=== PATIENT | female | born 1960 | race Two or more races ===

== ENCOUNTER 2018-10-31 09:53 | Day surgery (SDC) | payer BC ==
[~2018-10-31 09:53] MED LIST: Bupivacaine 0.25%/EPINEPHrine 1:200,000 10 ML SDV INJECT ONE; Lactated Ringers 1,000 ML IV SCH; ceFAZolin 2 GM in Premix Bag 1 BAG IV ONE; traMADol 50 MG Tab PO PRN
[2018-10-31] MEDS ORDERED: Ondansetron 4 MG/2 ML SDV ONE (10:18)
[2018-10-31] MEDS ORDERED: fentaNYL 100 MCG/2 ML SDV ONE (10:19)
[2018-10-31] MEDS ORDERED: Midazolam 1 MG/ML 2 ML SDV ONE (10:19)
[2018-10-31] MEDS ORDERED: Sodium Chloride 0.9% 20 ML ONE (10:19)
[2018-10-31] MEDS ORDERED: ceFAZolin 1 GM Vial ONE (10:19)
[2018-10-31] MEDS ORDERED: Propofol 200 MG/20 ML SDV ONE (10:19)
--- NOTE | 2018-10-31 10:37 | PCM.PREANE ---
Preanesthetic Assessment - Anesthesia/Transfusion/Family Hx Anesthesia History: Prior Anesthesia Without Reaction Family History of Anesthesia Reaction: No Transfusion History: No Prior Transfusion(s) - Review of Systems General: No Symptoms Pulmonary: No Symptoms Cardiovascular: No Symptoms Gastrointestinal: No Symptoms Neurological: No Symptoms Other: Reports: None - Physical Assessment NPO Status Date: 10/30/18 Height: 5 ft 7 in Weight: 77.564 kg ASA Class: 1 Mental Status: Alert & Oriented x3 Airway Class: Mallampati = 2 Dentition: Reports: Normal Dentition ROM/Head Extension: Full Lungs: Clear to Auscultation, Normal Respiratory Effort Cardiovascular: Regular Rate, Regular Rhythm - Allergies Allergies/Adverse Reactions: Allergies Allergy/AdvReac Type Severity Reaction Status Date / Time No Known Allergies Allergy Verified 10/30/18 08:59 - Blood Blood Available: No - Anesthesia Plan Pre-Op Medication Ordered: None - Acknowledgements Anesthesia Type Planned: MAC Pt an Appropriate Candidate for the Planned Anesthesia: Yes Alternatives and Risks of Anesthesia Discussed w Pt/Guardian: Yes Pt/Guardian Understands and Agrees with Anesthesia Plan: Yes PreAnesthesia Questionnaire HEENT History: Reports: Other (See Below) Other HEENT History: wears glasses, contacts [employer] HAND History: Reports: - Past Surgical History Head Surgeries/Procedures: Reports: None Musculoskeletal Surgical History: Reports: Knee Replacement Other Musculoskeletal Surgeries/Procedures:: right TKA - SUBSTANCE USE Smoking Status *Q: Never Smoker Recreational Drug Use History: No - HOME MEDS Home Medications: Home Meds . [No Known Home Meds] 10/30/18 [History] - CURRENT (IN HOUSE) MEDS Current Meds: Current Medications Lactated Ringer's (Ringers, Lactated) 1,000 mls @ 125 mls/hr IV ASDIRECTED ABDIEL Tramadol HCl (Ultram) 50 mg PO Q4H PRN PRN Reason: Pain Discontinued Medications Bupivacaine HCl/Epinephrine Bitart (Marcaine 0.25%/Epinephrine 1:200,000) 10 ml INJECT ONETIME ONE Stop: 10/31/18 08:01 Cefazolin Sodium (Ancef) Confirm Administered Dose 2 gm .ROUTE .STK-MED ONE Stop: 10/31/18 10:20 Fentanyl (Sublimaze) Confirm Administered Dose 100 mcg .ROUTE .STK-MED ONE Stop: 10/31/18 10:20 Cefazolin Sodium/Dextrose 2 gm (/ Premix) 50 mls @ 100 mls/hr IV ONETIME ONE Stop: 10/31/18 08:29 Sodium Chloride (Normal Saline) Confirm Administered Dose 20 mls @ as directed .ROUTE .STK-MED ONE Stop: 10/31/18 10:20 Midazolam HCl (Versed 1 Mg/Ml) Confirm Administered Dose 2 mg .ROUTE .STK-MED ONE Stop: 10/31/18 10:20 Ondansetron HCl (Zofran) Confirm Administered Dose 4 mg .ROUTE .STK-MED ONE Stop: 10/31/18 10:19 Propofol (Diprivan 20 Ml) Confirm Administered Dose 200 mg .ROUTE .STK-MED ONE Stop: 10/31/18 10:20
[2018-10-31] MEDS ORDERED: Dexamethasone/Tobramycin 0.1-0.3% Ophth Susp 2.5 ML Bottle ONE (10:53)
[2018-10-31] MEDS ORDERED: Bupivacaine 0.25%/EPINEPHrine 1:200,000 10 ML SDV ONE (10:53)
--- NOTE | 2018-10-31 12:48 | PCM48HPAN ---
Post Anesthesia Note - EVALUATION WITHIN 48HRS OF ANESTHETIC Vital Signs in Normal Range: Yes Patient Participated in Evaluation: Yes Respiratory Function Stable: Yes Airway Patent: Yes Cardiovascular Function Stable: Yes Hydration Status Stable: Yes Pain Control Satisfactory: Yes Nausea and Vomiting Control Satisfactory: Yes Mental Status Recovered: Yes Resp Rate: 16
--- NOTE | 2018-11-01 12:38 | PCM.OPNOTE ---
- General Post-Op/Procedure Note Date of Surgery/Procedure: 10/31/18 Operative Procedure(s): bilateral upper eyelid blepharoplasties for excess skin Pre Op Diagnosis: bilateral upper eyelid dermatochalasis Post-Op Diagnosis: Same Anesthesia Technique: Local, MAC Primary Surgeon: Ev Jaeger Endless Steamer Tender: Courtney Luo Complications: None Condition: Good
--- NOTE | 2018-11-01 19:29 | OR ---
SURGEON: EMMIE HOUSTON MD DATE OF PROCEDURE: 10/31/2018 PREOPERATIVE DIAGNOSIS: Bilateral upper eyelid dermatochalasis. POSTOPERATIVE DIAGNOSIS: Bilateral upper eyelid dermatochalasis. PROCEDURE: Bilateral upper eyelid blepharoplasties for excess skin weighing down lids. EDGER TECHNICIAN: SAMANTHA Hernandez REASON FOR AND ROLE OF EDGER TECHNICIAN: Retraction, prepping, draping, positioning and closure assistance. ANESTHESIA: Local MAC. INDICATIONS: Ms. Mohamud Bartholomew is a 58-year-old female who is seen today in evaluation for excess upper eyelid skin. Visual field exams are significant, and she does have excess skin with a decreased MRD. It is causing visual obstruction. Risks and benefits were discussed including but not limited to bleeding, infection, damage to underlying or overlying structures, possible need for future interventions, or possible scarring. PROCEDURE IN DETAIL: After informed consent was obtained and placed on the chart, the patient was brought to the operating theater and laid in supine position. After adequate local MAC anesthesia was obtained, the area was prepped and draped, and time-out was completed to confirm side and site. After adequate marking of the upper eyelids and 0.25% Marcaine with epinephrine had been injected into the area and allowed to sit for hemostasis, the skin was excised in an elliptical fashion using a #15 blade. Meticulous hemostasis then was undertaken for the underlying musculature. Once completed, the wound was closed with deep 5-0 Monocryl stitch and a running 6-0 Prolene for the skin. A symmetric dissection was carried out on the opposite eye. Once completed, full 6-0 Prolene were Steri-Striped on the forehead and the lateral temporal areas. She tolerated this well. All counts and needles were correct at the end of the case. The wounds were dressed with TobraDex drops. TobraDex drops were also placed in the eye. FOLLOWUP INSTRUCTIONS: The patient will see us in 7 to 10 days, sooner if any problems, questions, or concerns, and she will use the remainder of the TobraDex for home. HEGGTHE / MODL /[id number]
== END 2018-10-31 13:20 | disposition home or self-care (01) ==
LOC: MW.SDS 09:53
PROVIDERS: ATTEND Plastic Surgery
DX: H02.834 Dermatochalasis of left upper eyelid (principal); H02.831 Dermatochalasis of right upper eyelid
CPT/HCPCS: 15823; 81025; A9270; J0690; J2250; J2405; J2704; J3010; J3490; J7120

== ENCOUNTER 2024-09-12 11:41 | Emergency (ER) | payer BC ==
[2024-09-12] MEDS ORDERED: Sodium Chloride 0.9% 2.5 ML Syringe FLUSH PRN (12:02)
[2024-09-12] MEDS ORDERED: Sodium Chloride 0.9% 10 ML Syringe FLUSH PRN (12:02)
[2024-09-12 12:08] LABS: BASOPHILS ABSOLUTE AUTO 0.02 K/uL (0.00-0.20); BASOPHILS PERCENT AUTO 0.4 % (0.0-1.0); EOSINOPHILS ABSOLUTE AUTO 0.01 K/uL (0.00-0.45); EOSINOPHILS PERCENT AUTO 0.2 % (0.0-6.0); HEMATOCRIT 40.5 % (37.0-47.0); HEMOGLOBIN 14.2 g/dL (12.0-16.0); IMMATURE GRAN ABSOLUTE AUTO 0.01 K/uL (0.00-0.05); IMMATURE GRAN PERCENT AUTO 0.2 % (0.0-0.4); LYMPHOCYTES ABSOLUTE AUTO 1.86 K/uL (1.00-4.80); LYMPHOCYTES PERCENT AUTO 33.4 % (24.0-44.0); MEAN CORPUSCULAR HEMOGLOBIN 32.3 pg (28.0-32.0); MEAN CORPUSCULAR HGB CONC 35.1 g/dL (32.0-36.0); MEAN PLATELET VOLUME 9.8 fL (9.4-12.3); MONOCYTES ABSOLUTE AUTO 0.81 K/uL (0.00-0.80); MONOCYTES PERCENT AUTO 14.5 % (0.0-8.0); NEUTROPHILS ABSOLUTE AUTO 2.86 K/uL (1.80-7.70); NEUTROPHILS PERCENT AUTO 51.3 % (41.0-71.0); PLATELET COUNT,PLT 158 K/uL (150-400); WHITE BLOOD CELL COUNT,WBC 5.57 K/uL (3.9-11.3)
[2024-09-12 12:28] LABS: A/G RATIO 1.1 (0.9-1.6); BILIRUBIN TOTAL 0.8 mg/dL (0.2-1.0); CALCIUM 9.2 mg/dL (8.5-10.1); CARBON DIOXIDE,CO2 22.8 mmol/L (21.0-32.0); CREATININE 1.3 mg/dL (0.6-1.0); MAGNESIUM 2.4 mg/dL (1.8-2.4); POTASSIUM,K 3.2 mmol/L (3.5-5.1); PROTEIN TOTAL,TP 7.7 g/dL (6.4-8.2)
[2024-09-12] MEDS: Sodium Chloride 0.9% 1,000 ML IV STA (12:36)
[2024-09-12] MEDS: Potassium Chloride 20 MEQ Tab.ER PO STA (12:36)
[2024-09-12] MEDS: methylPREDNISolone Sodium Succinate 125 MG/2 ML SDV IVPUSH STA (12:37)
[2024-09-12] MEDS: Acetaminophen 500 MG Tab PO STA (12:37)
[2024-09-12] MEDS: Albuterol/Ipratropium 3.0-0.5 MG/3 ML Neb Soln NEB STA (12:44)
[2024-09-12] MEDS: Albuterol 0.083% 2.5 MG/3 ML Neb Soln NEB STA ×2 (12:44→14:08)
[2024-09-12] MEDS: Magnesium Sulf/Wat 2 GM/50 mL 2 GM in Premix Bag 1 BAG IV STA (14:07)
== END 2024-09-12 15:35 | disposition home or self-care (01) ==
LOC: MW.ED 11:41
DX: J45.21 Mild intermittent asthma with (acute) exacerbation (principal); J06.9 Acute upper respiratory infection, unspecified; Z75.8 Other problems related to medical facilities and other health care; Z79.899 Other long term (current) drug therapy; Z79.51 Long term (current) use of inhaled steroids
CPT/HCPCS: 36415; 71046; 80053; 83690; 83735; 84484; 85025; 87428; 93005; 94640; 96361; 96365; 96375; 99285; A9270; J2919; J3475; J7030; 93010; 99283; J7620-GY